=== PATIENT | male | born 1950 | race Hispanic/Latino ===

== ENCOUNTER 2018-10-01 10:55 | Inpatient (IN) | payer OTHER ==
[2018-09-28 11:59] LABS: BASOPHILS # (AUTO) 0.1 (0.0-0.1); EOSINOPHILS % 9.7 % (0.0-6.0); HEMOGLOBIN 15.3 g/dL (14.0-18.0); LYMPHOCYTES # (AUTO) 1.8 (1.0-3.2); LYMPHOCYTES % 17.5 % (18.0-39.1); MEAN CORPUSCULAR HEMOGLOBIN 29.4 pg (28-32); MEAN CORPUSCULAR VOLUME 86.4 fL (81-99); MONOCYTES # (AUTO) 0.8 (0.2-0.8); MONOCYTES % 7.3 % (4.4-11.3); NEUTROPHILS # (AUTO) 6.7 (2.1-6.9); NEUTROPHILS % 64.1 % (38.7-80.0); PLATELET COUNT 316 x10e3/uL (140-360); RED BLOOD COUNT 5.21 x10e6/uL (4.3-5.7); RED CELL DISTRIBUTION WIDTH 12.9 % (11.7-14.4)
[2018-09-28 12:05] LABS: ALANINE AMINOTRANSFERASE 15 IU/L (0-55); ALBUMIN 3.7 g/dL (3.5-5.0); ALBUMIN/GLOBULIN RATIO 0.8 (0.8-2.0); ALKALINE PHOSPHATASE 78 IU/L (40-150); ANION GAP 15.1 mmol/L (8-16); BLOOD UREA NITROGEN 12 mg/dL (7-26); BUN/CREATININE RATIO 14 (6-25); CALCIUM 10.3 mg/dL (8.4-10.2); CARBON DIOXIDE 23 mmol/L (22-29); CHLORIDE 106 mmol/L (98-107); CREATININE, SERUM 0.86 mg/dL (0.72-1.25); EST GLOMERULAR FILTRATION RATE > 60 ML/MIN (60-); GLUCOSE 115 mg/dL (74-118); POTASSIUM 4.1 mmol/L (3.5-5.1); SODIUM 140 mmol/L (136-145)
--- NOTE | 2018-09-28 13:49 | Diagnostic Imaging Report ---
EXAM: XR CHEST 2 VIEWS DATE: 09/28/2018 11:21 AM INDICATION: Preoperative, renal mass COMPARISON: None FINDINGS: Lines and Tubes: None Heart and Mediastinum: No acute cardiomediastinal findings. Lungs and Pleura: Biapical scarring. Coarsening of the interstitium bilaterally with bronchial wall thickening and probable bronchiectasis. Bones and Soft Tissues: No acute findings. IMPRESSION: 1. Chronic lung changes with no comparisons. Given history, dedicated CT chest recommended before surgery. Signed by: Dr. Enrique Mcclelland MD on 09/28/2018 1:45 PM
[2018-10-01] VITALS (15 sets, daily range): BP systolic 124–146; BP diastolic 64–75
[~2018-10-01] VITALS: Ht 167.6 cm; Wt 73.5 kg
[~2018-10-01 10:55] MED LIST: ALBUTEROL0.63 MG/3 NEB; AMLODIPINE BESY10 MG PO; FINASTERIDE5 MG PO; LISINOPRIL10 MG PO; PROAIR HFA INH8.5 GM INH; SODIUM CHLORIDE3 ML NEB; SPIRIVA18 MCG INH; SYMBICORT 16010.2 GM INH
--- OUTSIDE RECORDS SUMMARY | 2018-10-01 10:57 | XMS REPORT ---
[facility] Address Unknown Phone Unavailable Care Team Providers Care Entry Driver Operator Name Role Phone SHANTI SERRANO Unavailable Unavailable Problems This patient has no known problems. Allergies, Adverse Reactions, Alerts This patient has no known allergies or adverse reactions. Medications This patient has no known medications. Results Test Description Test Time Test Comments Text Results Atomic Results Result Comments CHEST 2 VIEWS 2018-09-28 13:44:00 [place] [address] Patient Name: DOMINICK DURON MR #: [id number] : 1950 Age/Sex: 68/M Req #: [id number] Adm Physician: Ordered by: SHANTI SERRANO MD Report #: [id number] Location: OR Room/Bed: Procedure: [id number] DX/CHEST 2 VIEWS Exam Date: 09/28/18 Exam Time: 1136 REPORT STATUS: Signed EXAM: XR CHEST 2 VIEWS DATE: 09/28/2018 11:21 AM GARY CATION: Preoperative, renal mass COMPARISON: None FINDINGS: Lines and Tubes: None Heart and Mediastinum: No acute cardiomediastinal findings. Lungs and Pleura: Biapical scarring. Coarsening of the interstitium bilaterally with bronchial wall thickening and probable bronchiectasis. Bones and Soft Tissues: No acute findings. IMPRESSION: 1. Chronic lung changes with no comparisons. Given history, dedicated CT chest recommended before surgery. Signed by: Dr. Enrique Huntley MD on 09/28/2018 1:45 PM Dictated By: ENRIQUE HUNTLEY MD 1341 Transcribed By: EDEL on 09/28/18 1345 COPY TO: SHANTI SERRANO MD
[2018-10-01] MEDS ORDERED: CEFAZOLIN SOD 1 GM/D5W 50ML 50 ML IV ONE (11:14)
[2018-10-01] MEDS ORDERED: LIDOCAINE HCL 1% 2 ML AMP ONE (11:54)
[2018-10-01] MEDS ORDERED: MANNITOL 25% 12.5GM/50ML 50 ML ONE (12:38)
[2018-10-01] MEDS ORDERED: IOPAMIDOL 610MG/1ML 300 MG/ML VIAL IV ONE (12:53)
[2018-10-01] MEDS ORDERED: MIDAZOLAM HCL 2 MG/2 ML VIAL ONE (15:28)
[2018-10-01] MEDS ORDERED: FENTANYL CITRATE/PF 100MCG/2 ML INJ ONE ×2 (15:28→16:05)
[2018-10-01] MEDS ORDERED: MORPHINE SULFATE 1 MG/ML 30ML PCA IV PRN (16:00)
[2018-10-01] MEDS ORDERED: ONDANSETRON HCL INJ 2 MG/ML VIAL IV PRN (16:00)
[2018-10-01] MEDS ORDERED: NALOXONE HCL INJ 0.4 MG/ML AMP IV PRN (16:00)
[2018-10-01] MEDS ORDERED: DIPHENHYDRAMINE HCL INJ 50 MG/ML VIAL IM PRN (16:00)
[2018-10-01] MEDS ORDERED: ACETAMINOPHEN 1000 MG/100 ML IV PRN (16:00)
[2018-10-01] MEDS ORDERED: MEPERIDINE HCL INJ 50 MG/ML INJ ONE (16:11)
[2018-10-01] MEDS ORDERED: HYDROMORPHONE 2MG/ML 2 MG/ML ML ONE (16:17)
[2018-10-01] MEDS ORDERED: MORPHINE SULFATE 1 MG/ML 30ML PCA ONE (16:23)
[2018-10-01] MEDS ORDERED: MORPHINE SULFATE INJ 4 MG/ML INJ ONE (16:31)
--- NOTE | 2018-10-01 16:38 | Diagnostic Imaging Report ---
Examination: Single AP view of the chest. COMPARISON: September 28, 2018 INDICATION: Postoperative evaluation, pneumothorax DISCUSSION: Lines/tubes: Enteric tube with distal tip not visualized. Lungs: Pulmonary fibrosis with superimposed venous congestion. Pleura: There is no pleural effusion or pneumothorax. Heart and mediastinum: The heart and the mediastinum are unremarkable. Bones and soft tissues: No acute bony abnormalities. Small pneumoperitoneum. IMPRESSION: No pneumothorax. Signed by: Dr. Wil Oshea M.D. on 10/01/2018 4:34 PM
[2018-10-01] MEDS ORDERED: SEVOFLURANE INHAL SOLN 250 ML PEN BTL ONE (17:35)
[2018-10-01] MEDS ORDERED: ONDANSETRON HCL INJ 2 MG/ML VIAL ONE (17:35)
[2018-10-01] MEDS ORDERED: ROCURONIUM BROMIDE 10 MG/ML 5ML VIAL ONE (17:35)
[2018-10-01] MEDS ORDERED: LIDOCAINE HCL 2% LOCAL INJ 5 ML SDV VIAL INJ ONE (17:35)
[2018-10-01] MEDS ORDERED: DEXAMETHASONE SOD PHOS INJ 4 MG/ML VIAL ONE (17:35)
[2018-10-01] MEDS ORDERED: PROPOFOL IV EMULSION 10 MG/ML 20 ML VIAL ONE (17:35)
[2018-10-01] MEDS: SODIUM CHLORIDE 0.9% 250ML IRRIG IR SCH (20:00)
[2018-10-01] MEDS: CEFAZOLIN SOD 1 GM/D5W 50ML 50 ML IV SCH (22:08)
--- NOTE | 2018-10-01 23:17 | Operative Report ---
DATE OF PROCEDURE: October 01, 2018 PREOPERATIVE DIAGNOSES 1. Left renal mass consistent with renal cell carcinoma. 2. Microhematuria. POSTOPERATIVE DIAGNOSES 1. Left renal mass consistent with renal cell carcinoma. 2. Microhematuria. OPERATIONS PERFORMED 1. Cystourethroscopy with bilateral ureteral catheterization and retrograde ureteropyelography (separate procedure performed for the microhematuria). 2. Interpretation of retrograde ureteropyelography. 3. Supervision of fluoroscopy. No radiologist present. 4. Complicated left partial nephrectomy. HANDKERCHIEF FOLDER: Lucia Sauer MD COMPLICATIONS: None. CLINICAL SUMMARY: Chris Garner is a 68-year-old man with microhematuria who was found to have left renal mass. He was brought for the above procedures. He is aware of the risks of bleeding, infection, injury to adjacent structures, need for additional procedures and elected to proceed. He also understands the risk of incomplete cancer resection as well as cancer recurrence. OPERATIVE PROCEDURE IN DETAIL: Informed consent was verified. Chris Garner was properly identified and taken to the operative room and placed on the cystoscopy table in supine position and anesthesia was uneventfully begun. The patient was then carefully and gently repositioned in the dorsal lithotomy position with all pressure points well padded. His genitalia were prepared and draped in usual sterile fashion. A 22.5-Mohawk cystoscope sheath with a visual obturator in place was atraumatically inserted into the patient's urethra. It was guided down the unremarkable urethra through the normal sphincteric region through the prostate bed which was significant for visually obstructing trilobar prostatic hypertrophy with kissing lateral lobes and then the median lobe as well. Panendoscopy of the urinary bladder revealed grade 1 trabeculations; but no tumors, no stones and no diverticula. No suspicious mucosal lesions were identified. An open-ended catheter was used to cannulate the right ureter and retrograde ureteropyelogram was performed. It was then inserted to the left ureter and retrograde ureteropyelogram was performed. The cystoscope was withdrawn. The open-ended catheter was incorporated into the Adler drainage bag following placement of a 20-Mohawk Adler catheter. Interpretation of retrograde ureteropyelography: Contrast was instilled in retrograde fashion bilaterally. There were no tumors, no stones and no diverticula. Unobstructed drainage was observed bilaterally fluoroscopically. The patient was then transported to the open operating room where he was carefully and gently repositioned in a flank position with all pressure points very carefully well padded. His abdomen, chest and back were prepared and draped in usual sterile fashion. A 12th rib incision was made, carried through layers of the abdominal and chest wall. An extrapleural, extraperitoneal approach was utilized. The kidney was isolated. We controlled the single renal artery with a Rumel tourniquet. Mannitol was given by the anesthesiologist and following its circulation, we clamped the renal artery for a total time of 7 minutes. During these 7 minutes, we circumscribed the tumor and excised it and sent it for histopathological evaluation. A 3-0 chromic suture was then utilized to oversew the open collecting system as well as the venous and arterial channels within this cut region. Once following releasing of the artery clamping, we verified excellent hemostasis. The defect was reconstructed with Flow-Seal, Surgicel and 2-0 chromic sutures in interrupted fashion. Histopathology came back as having negative margins of the specimen. A Andrew drain was then placed through a separate stab incision, secured to the skin with nylon suture. Hemostasis was again verified. Copious irrigation was performed. The patient's incision was then approximated in layers utilizing heavy Vicryl suture in interrupted figure-of-8 fashion. The skin was approximated with skin collin. Sterile dressings were applied. The open-ended catheter was removed. The patient was then uneventfully reversed from anesthesia and taken to the recovery room in stable condition. There were no complications during the procedure. The patient tolerated the procedure well. Sponge, needle and instrument counts were correct x2 at the end of the case. Estimated blood loss was 300 mL. Will proceed with routine postoperative care and of course lifelong urological followup. For the patient's BPH, we will monitor his symptomatology and evaluate that postoperatively. Digital rectal examination at the end of the cystoscopic examination revealed a 40-g prostate that is smooth, non-fluctuant and without any nodules. Job#: [id number] SHERRY cc:DR SPRING AGUIRRE
[2018-10-01] MEDS: D5.45%NS/KCL 20MEQ 1,000 ML IV SCH (23:55)
[2018-10-02] VITALS (24 sets, daily range): BP systolic 126–176; BP diastolic 65–82
--- NOTE | 2018-10-02 | NUR ---
Emptied out 80ml from ORLANDO. L Flank dressing noted to be saturated. Old dressing removed, Hipolito noted to be intact, but a post on the posterior end of staple oozing SS dng. New dsg applied with ABD pad and held in place with Hyperfix tape. Pt was assisted to reposition for comfort.
[2018-10-02 04:37] LABS: BASOPHILS % 0.2 % (0.0-1.0); HEMATOCRIT 41.3 % (38.2-49.6); HEMOGLOBIN 13.7 g/dL (14.0-18.0); LYMPHOCYTES % 5.7 % (18.0-39.1); MEAN CORPUSCULAR HEMOGLOBIN 29.1 pg (28-32); MEAN CORPUSCULAR HGB CONC 33.2 g/dL (31-35); MEAN CORPUSCULAR VOLUME 87.7 fL (81-99); MONOCYTES # (AUTO) 1.1 (0.2-0.8); MONOCYTES % 6.2 % (4.4-11.3); NEUTROPHILS # (AUTO) 15.3 (2.1-6.9); NEUTROPHILS % 87.6 % (38.7-80.0); PLATELET COUNT 291 x10e3/uL (140-360); RED BLOOD COUNT 4.71 x10e6/uL (4.3-5.7); RED CELL DISTRIBUTION WIDTH 12.8 % (11.7-14.4)
[2018-10-02 04:59] LABS: ANION GAP 14.9 mmol/L (8-16); CALCIUM 9.2 mg/dL (8.4-10.2); CREATININE, SERUM 1.29 mg/dL (0.72-1.25); POTASSIUM 3.9 mmol/L (3.5-5.1)
[2018-10-02] MEDS: D5.45%NS/KCL 20MEQ 1,000 ML IV SCH ×4 (05:09→23:18)
[2018-10-02] MEDS: SODIUM CHLORIDE 0.9% 250ML IRRIG IR SCH ×3 (05:10→08:00)
[2018-10-02] MEDS: CEFAZOLIN SOD 1 GM/D5W 50ML 50 ML IV SCH ×3 (05:10→23:18)
[2018-10-02] MEDS ORDERED: ALBUTEROL/IPRATROPIUM 3 ML NEB NEB PRN (09:00)
[2018-10-02] MEDS ORDERED: HYDRALAZINE HCL 20 MG/ML VIAL IV PRN (09:00)
[2018-10-02] MEDS ORDERED: ONDANSETRON HCL INJ 2 MG/ML VIAL IV PRN (09:00)
--- NOTE | 2018-10-02 09:14 | History and Physical ---
PRIMARY CARE PROVIDER: Ruth Ann EVP: Dr. Nakul Sauer CHIEF COMPLAINT: Status post left nephrectomy secondary to left renal cell cancer with kidney mass. HISTORY: Patient is a 68-year-old male status post nephrectomy. The patient is otherwise stable at this time. He is in the ICU recovering. No chest pain. No shortness of breath. He does have some pain when he coughs. Baseline, he does use multiple inhalers. The patient is otherwise stable. PAST MEDICAL HISTORY: Hypertension, bronchiectasis, left kidney cancer, and COPD. PAST SURGICAL HISTORY: Left nephrectomy. SOCIAL HISTORY: Patient was a former smoker. No alcohol. No recreational drug use. ALLERGIES: IODINE. HOME MEDICATIONS: List reviewed. REVIEW OF SYSTEMS: Postoperative pain appropriate. NG tube. PHYSICAL EXAMINATION VITAL SIGNS: Temperature is 98, blood pressure 165/74, pulse rate 71, respirations 18. GENERAL: Patient is not in acute distress. He is awake. HEENT: Normocephalic, atraumatic and anicteric. NG tube in place. NECK: Grossly supple. PULMONARY: Diminished breath sounds without any wheezing or rales. CARDIOVASCULAR: S1 and S2. Regular rate and rhythm. ABDOMEN: Soft. Status post left nephrectomy. EXTREMITIES: No cyanosis or edema. SCD in place. NEUROLOGIC: No focal deficit. LABORATORY: Sodium is 136, potassium 3.9, chloride 103, bicarb 22, BUN 16, creatinine 1.3, glucose is 141. WBC 17.4, hemoglobin 13.7, hematocrit 41.3, and platelets is 291,000. IMPRESSION 1. Status post left nephrectomy today. 2. Baseline bronchiectasis, chronic obstructive pulmonary disease and former smoker. 3. Hypertension. PLAN: Nebulizer treatment. Continue postoperative care. NG tube management. IV fluids and pain control. Will monitor the patient's electrolytes and lab work. Job#: [id number] MA
[2018-10-02] MEDS: AMLODIPINE BESYLATE 10 MG TAB PO SCH (09:22)
[2018-10-02] MEDS: LISINOPRIL 20 MG TAB PO SCH (09:22)
[2018-10-02] MEDS: ALBUTEROL/IPRATROPIUM 3 ML NEB NEB SCH ×2 (14:15→19:15)
[2018-10-02] MEDS: BUDESONIDE/FORMOTEROL 160/4.5MCG INHALER INH SCH (19:00)
[2018-10-02] MEDS ORDERED: SODIUM CHLORIDE 0.9% 50ML 0 ML ONE (22:43)
[2018-10-03] VITALS (13 sets, daily range): BP systolic 125–145; BP diastolic 69–82
[2018-10-03] MEDS: ALBUTEROL/IPRATROPIUM 3 ML NEB NEB SCH ×4 (01:55→20:30)
[2018-10-03 04:46] LABS: BASOPHILS # (AUTO) 0.1 (0.0-0.1); BASOPHILS % 0.3 % (0.0-1.0); EOSINOPHILS # (AUTO) 0.1 (0.0-0.4); EOSINOPHILS % 0.4 % (0.0-6.0); HEMATOCRIT 39.5 % (38.2-49.6); HEMOGLOBIN 12.9 g/dL (14.0-18.0); LYMPHOCYTES # (AUTO) 1.4 (1.0-3.2); LYMPHOCYTES % 8.6 % (18.0-39.1); MEAN CORPUSCULAR HEMOGLOBIN 29.4 pg (28-32); MEAN CORPUSCULAR HGB CONC 32.7 g/dL (31-35); MONOCYTES # (AUTO) 1.7 (0.2-0.8); MONOCYTES % 10.5 % (4.4-11.3); NEUTROPHILS # (AUTO) 12.8 (2.1-6.9); NEUTROPHILS % 79.6 % (38.7-80.0); PLATELET COUNT 273 x10e3/uL (140-360); RED BLOOD COUNT 4.39 x10e6/uL (4.3-5.7); RED CELL DISTRIBUTION WIDTH 12.9 % (11.7-14.4)
[2018-10-03 05:13] LABS: CALCIUM 9.2 mg/dL (8.4-10.2); CREATININE, SERUM 1.32 mg/dL (0.72-1.25)
[2018-10-03 06:04] LABS: BAND NEUTROPHILS % (MANUAL) 2 %; LYMPHOCYTES % (MANUAL) 11 % (19-48); MONOCYTES % (MANUAL) 15 % (3.4-9.0); NEUTROPHILS % (MANUAL) 72 % (40-74)
[2018-10-03 06:05] LABS: PLATELET ESTIMATE ADEQUATE; PLATELET MORPHOLOGY COMMENT NORMAL; RBC MORPHOLOGY COMMENT NORMAL
[2018-10-03] MEDS: CEFAZOLIN SOD 1 GM/D5W 50ML 50 ML IV SCH ×3 (06:15→21:00)
[2018-10-03] MEDS: BUDESONIDE/FORMOTEROL 160/4.5MCG INHALER INH SCH ×2 (07:00→20:30)
[2018-10-03] MEDS: AMLODIPINE BESYLATE 10 MG TAB PO SCH (09:00)
[2018-10-03] MEDS: LISINOPRIL 20 MG TAB PO SCH (09:00)
[2018-10-03] MEDS ORDERED: MORPHINE SULFATE INJ 4 MG/ML INJ IV PRN ×2 (10:15→10:30)
[2018-10-03] MEDS ORDERED: FUROSEMIDE INJ 10 MG/ML 2 ML VIAL IV ONE (10:15)
[2018-10-03] MEDS: GUAIFENESIN 600 MG TAB PO SCH ×2 (11:37→17:10)
--- NOTE | 2018-10-03 11:50 | NUR ---
REC'D ORDER PER DR. SERRANO TO REMOVE DRESSING CHANGE AND LEFT INCISION LINE JAMES AND REPLACE DRESSING TO ORLANDO DRAIN
[2018-10-03] MEDS ORDERED: BISACODYL 10 MG SUPP PR ONE (12:00)
--- NOTE | 2018-10-03 12:00 | NUR ---
PT MAY HAVE SIPS OF CLEAR LIQUIDS
[2018-10-03] MEDS: D5.45%NS/KCL 20MEQ 1,000 ML IV SCH ×2 (12:15→20:43)
--- NOTE | 2018-10-03 15:30 | NUR ---
report called to [facility], will transfer pt to room 107 after antibiotic completes infusion.
--- NOTE | 2018-10-03 16:06 | NUR ---
pt transferred to room 107 via w/c in stable condition. [facility] assisted with transfer.
[2018-10-03] MEDS: SENNOSIDES 8.6 MG TAB PO SCH (17:10)
--- NOTE | 2018-10-03 19:12 | NUR ---
WALKING ROUNDS PERFORMED, RECEIVED PT LAYING SEMI FOWLERS IN BED, AAOX3, RR EVEN AND NON-LABORED, ON RA. NO S/SX OF DISTRESS NOTED. (L) LATERAL ABD/FLANK INCISION CDI, OPEN TO AIR. (L) LATERAL ABD ORLANDO DRAIN INTACT AND DRAINING TO BULB SUCTION. LEFT PT LAYING SEMI FOWLERS IN BED, BED IN LOW LOCKED POSITION, SIDE RAILS UPX2, CALL LIGHT AND PHONE WITHIN REACH.
--- NOTE | 2018-10-03 22:30 | NUR ---
PT REQUESTING TO SIT ON SIDE OF BED. PT ASSISTED TO SIT ON SIDE OF BED AND DANGLE FEET.
--- NOTE | 2018-10-03 22:55 | NUR ---
PT ASSISTED TO SEMI FOWLERS POSITION, LEFT PT LAYING SEMI FOWLERS IN BED, BED IN LOW LOCKED POSITION, SIDE RAILS UPX2, CALL LIGHT AND PHONE WITHIN REACH.
[2018-10-04] VITALS (8 sets, daily range): BP systolic 119–147; BP diastolic 57–75
[2018-10-04] MEDS: ALBUTEROL/IPRATROPIUM 3 ML NEB NEB SCH ×4 (02:15→19:04)
[2018-10-04] MEDS: HYDROCODONE/APAP 10MG-325MG TAB PO PRN ×2 (02:46→22:05)
[2018-10-04] MEDS: CEFAZOLIN SOD 1 GM/D5W 50ML 50 ML IV SCH ×3 (05:04→21:51)
[2018-10-04] MEDS: D5.45%NS/KCL 20MEQ 1,000 ML IV SCH (05:04)
[2018-10-04 06:13] LABS: BASOPHILS # (AUTO) 0.1 (0.0-0.1); BASOPHILS % 0.4 % (0.0-1.0); EOSINOPHILS # (AUTO) 0.3 (0.0-0.4); LYMPHOCYTES # (AUTO) 1.5 (1.0-3.2); LYMPHOCYTES % 10.2 % (18.0-39.1); MEAN CORPUSCULAR HEMOGLOBIN 28.9 pg (28-32); MEAN CORPUSCULAR HGB CONC 32.5 g/dL (31-35); MEAN CORPUSCULAR VOLUME 88.9 fL (81-99); MONOCYTES # (AUTO) 1.7 (0.2-0.8); MONOCYTES % 11.1 % (4.4-11.3); NEUTROPHILS # (AUTO) 11.3 (2.1-6.9); NEUTROPHILS % 75.8 % (38.7-80.0); PLATELET COUNT 253 x10e3/uL (140-360); RED CELL DISTRIBUTION WIDTH 12.9 % (11.7-14.4)
[2018-10-04 06:28] LABS: ANION GAP 11.4 mmol/L (8-16); CALCIUM 9.8 mg/dL (8.4-10.2); CREATININE, SERUM 1.28 mg/dL (0.72-1.25); POTASSIUM 4.4 mmol/L (3.5-5.1)
--- NOTE | 2018-10-04 07:30 | NUR ---
Dr. Sauer rounded and asked the the pt. be ambulated and given a supp for bowel action. Pt. was ordered and has worked with the pt. who ambulated the entire hallway and remains up in the bedside chair.
[2018-10-04] MEDS ORDERED: BISACODYL 10 MG SUPP PR NR (07:45)
[2018-10-04] MEDS: BUDESONIDE/FORMOTEROL 160/4.5MCG INHALER INH SCH ×2 (08:00→19:00)
[2018-10-04] MEDS: LISINOPRIL 20 MG TAB PO SCH (08:51)
[2018-10-04] MEDS: AMLODIPINE BESYLATE 10 MG TAB PO SCH (08:51)
[2018-10-04] MEDS: GUAIFENESIN 600 MG TAB PO SCH ×2 (08:51→17:22)
[2018-10-04] MEDS: SENNOSIDES 8.6 MG TAB PO SCH ×2 (08:51→17:22)
[2018-10-04 09:08] LABS: EOSINOPHILS % (MANUAL) 2 % (0-7); LYMPHOCYTES % (MANUAL) 10 % (19-48); MONOCYTES % (MANUAL) 12 % (3.4-9.0); NEUTROPHILS % (MANUAL) 76 % (40-74); NUCLEATED RED BLOOD CELLS 1; PLATELET ESTIMATE ADEQUATE; PLATELET MORPHOLOGY COMMENT FEW LARGE; RBC MORPHOLOGY COMMENT NORMAL
[2018-10-04] MEDS ORDERED: BISACODYL 10 MG SUPP PR PRN (15:15)
[2018-10-04] MEDS ORDERED: BISACODYL 10 MG SUPP PR ONE (15:30)
--- NOTE | 2018-10-04 19:33 | NUR ---
WALKING ROUNDS PERFORMED, RECEIVED PT LAYING SEMI FOWLERS IN BED, AAOX3, RR EVEN AND NON-LABORED, O2 BY NC AT 2L. NO S/SX OF DISTRESS NOTED. LEFT PT LAYING SEMI FOWLERS IN BED, BED IN LOW LOCKED POSITION, SIDE RAILS UPX2, CALL LIGHT AND PHONE WITHIN REACH.
[2018-10-05] VITALS (7 sets, daily range): BP systolic 111–131; BP diastolic 60–72
[2018-10-05] MEDS: ALBUTEROL/IPRATROPIUM 3 ML NEB NEB SCH ×4 (00:12→19:00)
[2018-10-05] MEDS: CEFAZOLIN SOD 1 GM/D5W 50ML 50 ML IV SCH ×3 (05:18→21:22)
--- NOTE | 2018-10-05 05:18 | NUR ---
DRESSING TO (L) ANTERIOR ORLANDO DRAIN CHANGED AT THIS TIME. APPLIED DRAIN SPONGE AND SECURED WITH TAPE.
[2018-10-05 05:49] LABS: BASOPHILS # (AUTO) 0.1 (0.0-0.1); BASOPHILS % 0.4 % (0.0-1.0); EOSINOPHILS # (AUTO) 0.9 (0.0-0.4); EOSINOPHILS % 6.6 % (0.0-6.0); HEMATOCRIT 39.5 % (38.2-49.6); HEMOGLOBIN 13.1 g/dL (14.0-18.0); LYMPHOCYTES # (AUTO) 1.5 (1.0-3.2); LYMPHOCYTES % 11.5 % (18.0-39.1); MEAN CORPUSCULAR HEMOGLOBIN 29.4 pg (28-32); MEAN CORPUSCULAR HGB CONC 33.2 g/dL (31-35); MEAN CORPUSCULAR VOLUME 88.6 fL (81-99); MONOCYTES # (AUTO) 1.3 (0.2-0.8); MONOCYTES % 9.9 % (4.4-11.3); NEUTROPHILS # (AUTO) 9.5 (2.1-6.9); NEUTROPHILS % 71.1 % (38.7-80.0); PLATELET COUNT 271 x10e3/uL (140-360); RED BLOOD COUNT 4.46 x10e6/uL (4.3-5.7); RED CELL DISTRIBUTION WIDTH 12.9 % (11.7-14.4)
[2018-10-05 06:07] LABS: ANION GAP 12.8 mmol/L (8-16); BLOOD UREA NITROGEN 17 mg/dL (7-26); BUN/CREATININE RATIO 15 (6-25); CALCIUM 10.1 mg/dL (8.4-10.2); CARBON DIOXIDE 25 mmol/L (22-29); CHLORIDE 101 mmol/L (98-107); CREATININE, SERUM 1.13 mg/dL (0.72-1.25); EST GLOMERULAR FILTRATION RATE > 60 ML/MIN (60-); GLUCOSE 115 mg/dL (74-118); POTASSIUM 4.8 mmol/L (3.5-5.1); SODIUM 134 mmol/L (136-145)
[2018-10-05] MEDS: BUDESONIDE/FORMOTEROL 160/4.5MCG INHALER INH SCH ×2 (07:00→21:13)
--- NOTE | 2018-10-05 07:43 | NUR ---
Rcvd patient in report this am. Patient is awake in bed at this time. patient assisted out of the bathroom and now resting in bed comfortably
[2018-10-05] MEDS: GUAIFENESIN 600 MG TAB PO SCH ×2 (09:23→17:43)
[2018-10-05] MEDS: SENNOSIDES 8.6 MG TAB PO SCH ×2 (09:24→17:43)
[2018-10-05] MEDS: AMLODIPINE BESYLATE 10 MG TAB PO SCH (09:24)
[2018-10-05] MEDS: LISINOPRIL 20 MG TAB PO SCH (09:24)
[2018-10-05] MEDS: SODIUM CHLORIDE 0.9% 1000ML 1,000 ML IV SCH ×2 (11:12→20:40)
--- NOTE | 2018-10-05 12:02 | NUR ---
Patient is AAOx3. patient lung moon clear to auscultation. Bowel sounds present x4 but hypoactive at this time. Patient has a milian in place with hematuria noted. Left forearm IV in place and IV fluids infusing. No c/o pain at this time. No edema noted. Patient ambulated with a walker and assistance. Patient passing gas this am.
[2018-10-05] MEDS: HYDROCODONE/APAP 10MG-325MG TAB PO PRN (18:58)
--- NOTE | 2018-10-05 20:00 | NUR ---
PT IS LYEING ON THE BED.ALLERTX3 .NO RESP.DISTRESS.NO PAIN VOICED.BARNES CARE GIVEN.PINK COLORED URINE DRAINING WELL.BED LOCKED AND IN LOWEST POSITION.PHONE AND CALL LIGHT WITHIN REACH.INSTRUCTED TO CALL FOR ASSISTANCE NEEDED.
[2018-10-06] VITALS (7 sets, daily range): BP systolic 118–135; BP diastolic 69–74
[2018-10-06] MEDS: ALBUTEROL/IPRATROPIUM 3 ML NEB NEB SCH ×4 (00:30→20:05)
--- NOTE | 2018-10-06 01:48 | NUR ---
PT IS SLEEPING WELL.DENIED PAIN.
--- NOTE | 2018-10-06 04:00 | NUR ---
AMBULATES TO THE BATH ROOM.VOIDED.
[2018-10-06] MEDS: CEFAZOLIN SOD 1 GM/D5W 50ML 50 ML IV SCH ×3 (05:39→22:09)
[2018-10-06] MEDS: HYDROCODONE/APAP 10MG-325MG TAB PO PRN ×4 (05:39→22:09)
[2018-10-06 05:47] LABS: BASOPHILS # (AUTO) 0.1 (0.0-0.1); BASOPHILS % 0.6 % (0.0-1.0); EOSINOPHILS % 9.2 % (0.0-6.0); HEMOGLOBIN 12.5 g/dL (14.0-18.0); LYMPHOCYTES # (AUTO) 1.9 (1.0-3.2); LYMPHOCYTES % 17.3 % (18.0-39.1); MEAN CORPUSCULAR HEMOGLOBIN 28.8 pg (28-32); MEAN CORPUSCULAR HGB CONC 32.9 g/dL (31-35); MEAN CORPUSCULAR VOLUME 87.6 fL (81-99); MONOCYTES # (AUTO) 1.2 (0.2-0.8); MONOCYTES % 10.6 % (4.4-11.3); NEUTROPHILS % 61.9 % (38.7-80.0); PLATELET COUNT 271 x10e3/uL (140-360); RED BLOOD COUNT 4.34 x10e6/uL (4.3-5.7); RED CELL DISTRIBUTION WIDTH 12.7 % (11.7-14.4)
[2018-10-06] MEDS: SODIUM CHLORIDE 0.9% 1000ML 1,000 ML IV SCH (06:00)
--- NOTE | 2018-10-06 06:00 | NUR ---
HAD SMALL AMOUNT OF LIQUID BOWEL MOVEMENT.
[2018-10-06 06:14] LABS: ANION GAP 12.5 mmol/L (8-16); BLOOD UREA NITROGEN 18 mg/dL (7-26); BUN/CREATININE RATIO 20 (6-25); CALCIUM 9.5 mg/dL (8.4-10.2); CARBON DIOXIDE 23 mmol/L (22-29); CHLORIDE 104 mmol/L (98-107); EST GLOMERULAR FILTRATION RATE > 60 ML/MIN (60-); GLUCOSE 97 mg/dL (74-118); POTASSIUM 4.5 mmol/L (3.5-5.1); SODIUM 135 mmol/L (136-145)
--- NOTE | 2018-10-06 06:50 | NUR ---
REPORT GIVEN TO THE ONCOMING RN.WALKING ROUNDS DONE.STABLE CONDITION.FAMILY MEMBER @ BED SIDE.
[2018-10-06] MEDS: BUDESONIDE/FORMOTEROL 160/4.5MCG INHALER INH SCH ×2 (06:56→20:05)
--- NOTE | 2018-10-06 07:44 | NUR ---
Rcvd patient in report this am. Patient is asleep in bed. No s/s of distress noted
[2018-10-06] MEDS: GUAIFENESIN 600 MG TAB PO SCH ×2 (08:45→17:06)
[2018-10-06] MEDS: AMLODIPINE BESYLATE 10 MG TAB PO SCH (08:46)
[2018-10-06] MEDS: SENNOSIDES 8.6 MG TAB PO SCH ×2 (08:46→17:06)
[2018-10-06] MEDS: LISINOPRIL 20 MG TAB PO SCH (08:46)
--- NOTE | 2018-10-06 11:48 | NUR ---
Removed milian catheter at this time. Patient tolerated well. 700ml of straw urine noted. Patient due to void in 6 hours
--- NOTE | 2018-10-06 12:55 | NUR ---
Nutrition Screen Note RD Recommendation for Physician: advance diet as tolerated when medically feasible Plan of Care: RD following, monitoring for adequacy and tolerance Nutrition reason for involvement: LOS Primary Diagnose(s): Left renal mass Ht:66 in Wt:162.01lbs BMI:26.1 kg/m2 IBW:[address] Assessment:(10/06/2018) Initial encounter with patient. Pt denies nausea, vomiting, diarrhea, nor has any difficulty chewing or swallowing. Ptis currently on a clear liquid diet with plans to advance diet per physician and discharge on tomorrow. Current Diet: Clear liquid diet Malnutrition Evaluation (10/06/2018) The patient does not meet criteria for a specified degree of malnutrition at this time. Will re-evaluate at follow-up as appropriate. Diet Education Needs Assessment: Diet education not indicated. Diet Adequacy: Meeting fluid needs, Not meeting calorie needs, Not meeting protein needs Tolerance: Tolerating PO Nutrition Care Level:Alejandro Washburn RD, LD, CNSC
--- NOTE | 2018-10-06 17:00 | NUR ---
Patient voided at this time.
[2018-10-07] VITALS: BP 122/63
--- NOTE | 2018-10-07 00:10 | NUR ---
ASSESSMENT DONE.STABLE CONDITION.NO RESP.DISTRESS.BED LOCKED AND IN LOWEST POSITION.PHONE AND CALL LIGHT WITHIN REACH.INSTRUCTED TO CALL FOR ASSISTANCE NEEDED.
[2018-10-07] MEDS: ALBUTEROL/IPRATROPIUM 3 ML NEB NEB SCH ×3 (00:40→13:00)
[2018-10-07 04:00] VITALS: BP 117/65
[2018-10-07 05:24] LABS: BASOPHILS # (AUTO) 0.1 (0.0-0.1); BASOPHILS % 0.7 % (0.0-1.0); EOSINOPHILS # (AUTO) 1.2 (0.0-0.4); EOSINOPHILS % 10.2 % (0.0-6.0); HEMATOCRIT 37.2 % (38.2-49.6); HEMOGLOBIN 12.2 g/dL (14.0-18.0); LYMPHOCYTES # (AUTO) 2.2 (1.0-3.2); LYMPHOCYTES % 19.2 % (18.0-39.1); MEAN CORPUSCULAR HEMOGLOBIN 28.9 pg (28-32); MEAN CORPUSCULAR HGB CONC 32.8 g/dL (31-35); MEAN CORPUSCULAR VOLUME 88.2 fL (81-99); MONOCYTES # (AUTO) 1.2 (0.2-0.8); MONOCYTES % 10.2 % (4.4-11.3); NEUTROPHILS # (AUTO) 6.7 (2.1-6.9); NEUTROPHILS % 59.4 % (38.7-80.0); PLATELET COUNT 290 x10e3/uL (140-360); RED BLOOD COUNT 4.22 x10e6/uL (4.3-5.7); RED CELL DISTRIBUTION WIDTH 12.8 % (11.7-14.4)
[2018-10-07 05:41] LABS: BLOOD UREA NITROGEN 18 mg/dL (7-26); BUN/CREATININE RATIO 21 (6-25); CALCIUM 9.6 mg/dL (8.4-10.2); CARBON DIOXIDE 24 mmol/L (22-29); CHLORIDE 102 mmol/L (98-107); CREATININE, SERUM 0.85 mg/dL (0.72-1.25); EST GLOMERULAR FILTRATION RATE > 60 ML/MIN (60-); GLUCOSE 105 mg/dL (74-118); SODIUM 135 mmol/L (136-145)
[2018-10-07] MEDS: HYDROCODONE/APAP 10MG-325MG TAB PO PRN ×2 (05:52→13:52)
[2018-10-07] MEDS: CEFAZOLIN SOD 1 GM/D5W 50ML 50 ML IV SCH ×2 (06:08→13:52)
--- NOTE | 2018-10-07 06:55 | NUR ---
REPORT GIVEN TO THE ONCOMING RN.WALKING ROUNDS DONE.STABLE CONDITION.
[2018-10-07] MEDS: BUDESONIDE/FORMOTEROL 160/4.5MCG INHALER INH SCH (07:17)
--- NOTE | 2018-10-07 07:40 | NUR ---
Rcvd patient in report this am. Patient is asleep in bed at this time. No s/s of distress noted
[2018-10-07 08:27] VITALS: BP 116/67
--- NOTE | 2018-10-07 09:00 | NUR ---
Patient is AAOx3. Patient lung moon clear to auscultation. Bowel sounds present x4. Patient passing gas and has had a small BM. Post op left nephrectomy. Hipolito clean and dry. OR[place]O drain in place. Dressing clean and dry. No edema noted. No shortness of breath noted. No c/o pain at this time. Patient sitting in chair. Tolerating his regular diet
[2018-10-07] MEDS: AMLODIPINE BESYLATE 10 MG TAB PO SCH (09:03)
[2018-10-07] MEDS: GUAIFENESIN 600 MG TAB PO SCH (09:03)
[2018-10-07] MEDS: LISINOPRIL 20 MG TAB PO SCH (09:03)
[2018-10-07] MEDS: SENNOSIDES 8.6 MG TAB PO SCH (09:03)
[2018-10-07 10:12] VITALS: BP 116/67
[2018-10-07 13:15] VITALS: BP 114/63
--- NOTE | 2018-10-07 15:17 | NUR ---
Removed patients ORLANDO drain. Removed one stitch, tip was intact on OR[place]O drain. Patient tolerated removal well and pressure dressing applied.
[2018-10-07] MEDS ORDERED: TYLENOL WITH C1 EACH PO (16:56)
[2018-10-07] MEDS ORDERED: FLOMAX0.4 MG PO (16:56)
--- NOTE | 2018-10-07 17:18 | NUR ---
Patient discharged from facility to home. Reviewed all discharge instructions with patient. Patient verbalized understanding of discharge instructions, follow ups reviewed with patient. Patient left via wheelchair.
--- NOTE | 2018-10-08 08:22 | Discharge Summary ---
FINAL DIAGNOSES 1. Left renal mass consistent with renal cell carcinoma, now status post complicated left partial nephrectomy done by Dr. Lucia Sauer. 2. Postoperative nausea, vomiting, and constipation, resolving. 3. Postoperative leukocytosis, resolving. 4. Hyponatremia, improving. 5. Status post dehydration. SUMMARY: Patient is a 68-year-old male who came to the hospital after nephrectomy. The patient's sodium level was 136 on October 02, 2018. Patient was stable. Postoperative care on his nephrectomy done by Dr. Lucia Sauer. The patient is status post complicated left partial nephrectomy for microhematuria associated with left renal mass consistent with renal cell carcinoma. Pathology of the left kidney showed that the patient does have renal cell carcinoma, clear type cells. The patient is stable otherwise. Postoperatively, the patient had difficulty with his bowel movement. He was constipated and having difficulty with flatus and was subsequently on Dulcolax suppository. The patient did better. He had white cell count on postop of 17.4, now it is 11.25. The is no sign of infection. The patient had no fever. His leukocytosis resolved. The patient repeated lab work, chemistry, sodium is 135, potassium 4, chloride 102, bicarb 24, BUN 18, creatinine 0.8, and glucose is 105. WBC is 11.2, hemoglobin 12.2, hematocrit 37.2, and platelets are 290,000. The patient is stable, discharged home. Patient to follow up with Dr. Sauer as an outpatient. He will continue with his current medication prescriptions already given by Dr. Sauer. The patient will resume his medications on admission along with prescription by Dr. Nakul Sauer on discharge. Patient was stable. Discharged home. Follow up with primary care physician and Dr. Lucia Sauer within 1 to 2 weeks. Job#: [id number] CF
== END 2018-10-07 17:17 | disposition home or self-care (01) | DRG 657 ==
LOC: OR 10:55 → PACU V 15:57 → ICU 17:21 → MED/SURG 10-03 16:06
PROVIDERS: ADMIT Internal Medicine; ATTEND Internal Medicine
PROC: 0TB10ZZ Excision of Left Kidney, Open Approach (ICD-10-PCS; principal; 2018-10-01 13:00)
PROC: BT141ZZ Fluoroscopy of Kidneys, Ureters and Bladder using Low Osmolar Contrast (ICD-10-PCS; 2018-10-01 13:00)
DX: C64.2 Malignant neoplasm of left kidney, except renal pelvis (principal); E87.1 Hypo-osmolality and hyponatremia; N17.9 Acute kidney failure, unspecified; J44.9 Chronic obstructive pulmonary disease, unspecified; I10 Essential (primary) hypertension; Z87.891 Personal history of nicotine dependence; R31.29 Other microscopic hematuria; E86.0 Dehydration; K59.00 Constipation, unspecified; R11.2 Nausea with vomiting, unspecified; T81.89XA Other complications of procedures, not elsewhere classified, initial encounter
CPT/HCPCS: 36415; 71045; 71046; 74420; 80048; 80053; 83735; 85025; 86850; 86900; 88307; 88329; 93005; 94640; 97139; J0690; J1100; J1940; J2001; J2150; J2175; J2250; J2270; J2405; J7030